=== PATIENT | male | born 1965 | race Caucasian/White ===

== ENCOUNTER 2020-04-07 07:32 | Day surgery (SDC) | payer BC ==
[~2020-04-07 07:32] MED LIST: Lactated Ringers 1,000 ML IV SCH
[2020-04-07] MEDS ORDERED: Lidocaine 2% 5 ML SDV ONE (08:17)
[2020-04-07] MEDS ORDERED: Propofol 200 MG/20 ML SDV ONE (08:18)
[2020-04-07] MEDS ORDERED: fentaNYL 100 MCG/2 ML SDV ONE (08:18)
--- NOTE | 2020-04-07 08:21 | PCM.PREANE ---
Preanesthetic Assessment - Anesthesia/Transfusion/Family Hx Anesthesia History: Prior Anesthesia Without Reaction Family History of Anesthesia Reaction: No Transfusion History: No Prior Transfusion(s) - Review of Systems General: No Symptoms Pulmonary: No Symptoms Cardiovascular: No Symptoms Gastrointestinal: No Symptoms Neurological: No Symptoms Other: Reports: None - Physical Assessment NPO Status Date: 04/06/20 Height: 6 ft 4 in Weight: 125.645 kg ASA Class: 2 Mental Status: Alert & Oriented x3 Airway Class: Mallampati = 2 Dentition: Reports: Normal Dentition ROM/Head Extension: Full Lungs: Clear to Auscultation, Normal Respiratory Effort Cardiovascular: Regular Rate, Regular Rhythm - Lab Values: Laboratory Last Values POC Glucose 189 mg/dL (60-110) H 04/07/20 07:42 - Allergies Allergies/Adverse Reactions: Allergies Allergy/AdvReac Type Severity Reaction Status Date / Time rofecoxib [From Vioxx] Allergy Shortness Verified 04/07/20 08:04 of Breath - Blood Blood Available: No - Anesthesia Plan Pre-Op Medication Ordered: None - Acknowledgements Anesthesia Type Planned: General Anesthesia (tiva) Pt an Appropriate Candidate for the Planned Anesthesia: Yes Alternatives and Risks of Anesthesia Discussed w Pt/Guardian: Yes Pt/Guardian Understands and Agrees with Anesthesia Plan: Yes Additional Comments: PMH: DM@- am [id number], htn, hld PLAN: tiva PreAnesthesia Questionnaire HEENT History: Reports: Other (See Below) Other HEENT History: wears glasses Cardiovascular History: Reports: High Cholesterol, Hypertension Respiratory History: Reports: None Gastrointestinal History: Reports: None Genitourinary History: Reports: Renal Calculus Musculoskeletal History: Reports: Arthritis, Back Pain, Chronic Neurological History: Reports: None Psychiatric History: Reports: None Endocrine/Metabolic History: Reports: Diabetes, Type II, Obesity/BMI 30+ Hematologic History: Reports: None Immunologic History: Reports: None Oncologic (Cancer) History: Reports: None Dermatologic History: Reports: None - Past Surgical History Head Surgeries/Procedures: Reports: None HEENT Surgical History: Reports: None Cardiovascular Surgical History: Reports: None Respiratory Surgical History: Reports: None GI Surgical History: Reports: None Male Surgical History: Reports: None Endocrine Surgical History: Reports: None Neurological Surgical History: Reports: None Musculoskeletal Surgical History: Reports: Arthroscopic Knee Other Musculoskeletal Surgeries/Procedures:: knee arthroscopy x2 Oncologic Surgical History: Reports: None Dermatological Surgical History: Reports: None - SUBSTANCE USE Smoking Status *Q: Never Smoker Recreational Drug Use History: No - HOME MEDS Home Medications: Home Meds Dulaglutide [Trulicity] 1 injection SUBCUT WEEKLY 04/01/20 [History] Empagliflozin/Linagliptin [Glyxambi 25 mg-5 mg Tablet] 1 tab PO DAILY 04/01/20 [History] Rosuvastatin Calcium 40 mg PO DAILY 04/01/20 [History] amLODIPine [Norvasc] 2.5 mg PO DAILY 04/01/20 [History] metFORMIN HCl [Metformin HCl] 1,000 mg PO BID 04/01/20 [History] - CURRENT (IN HOUSE) MEDS Current Meds: Current Medications Lactated Ringer's (Ringers, Lactated) 1,000 mls @ 125 mls/hr IV ASDIRECTED AMI
--- NOTE | 2020-04-07 10:04 | PCM.OPNOTE ---
- General Post-Op/Procedure Note Date of Surgery/Procedure: 04/07/20 Operative Procedure(s): Colonoscopy Pre Op Diagnosis: Desire for colorectal cancer screening Post-Op Diagnosis: No evidence of neoplasia Anesthesia Technique: MAC (ASA II) Primary Surgeon: Terell Burt Condition: Good Free Text/Narrative:: DICTATION [id number] CPT CODE 40479
[2020-04-07] MEDS ORDERED: Lactated Ringers 1,000 ML IV SCH (10:15)
--- NOTE | 2020-04-07 10:42 | PCM.POSTAN ---
POST ANESTHESIA ASSESSMENT - MENTAL STATUS Mental Status: Alert, Oriented - VITAL SIGNS Vital Signs: Last Vital Signs Temp 97.3 F 04/07/20 10:10 Pulse 83 04/07/20 10:10 Resp 14 04/07/20 10:10 BP 146/88 H 04/07/20 10:10 Pulse Ox 93 L 04/07/20 10:10 - RESPIRATORY Respiratory Status: Respiratory Rate WNL, Airway Patent, O2 Saturation Stable - CARDIOVASCULAR CV Status: Pulse Rate WNL, Blood Pressure Stable - GASTROINTESTINAL GI Status: No Symptoms - POST OP HYDRATION Hydration Status: Adequate & Stable
--- NOTE | 2020-04-07 10:42 | PCM48HPAN ---
Post Anesthesia Note - EVALUATION WITHIN 48HRS OF ANESTHETIC Vital Signs in Normal Range: Yes Patient Participated in Evaluation: Yes Respiratory Function Stable: Yes Airway Patent: Yes Cardiovascular Function Stable: Yes Hydration Status Stable: Yes Pain Control Satisfactory: Yes Nausea and Vomiting Control Satisfactory: Yes Mental Status Recovered: Yes Vital Signs: Last Vital Signs Temp 97.3 F 04/07/20 10:10 Pulse 83 04/07/20 10:10 Resp 14 04/07/20 10:10 BP 146/88 H 04/07/20 10:10 Pulse Ox 93 L 04/07/20 10:10
--- NOTE | 2020-04-07 12:56 | OR ---
SURGEON: Terell Burt M.D. DATE OF PROCEDURE: 04/07/2020 OPERATION PERFORMED: Colonoscopy. PRIMARY SURGEON: Terell Burt MD ANESTHESIA: MAC. ASA CLASSIFICATION: II. PREOPERATIVE DIAGNOSIS: Desire for colorectal cancer screening. POSTOPERATIVE DIAGNOSIS: No evidence of neoplasia. DESCRIPTION OF PROCEDURE: The patient was taken to the endoscopy room and positioned on the endoscopy table in the left lateral decubitus position. Time-out was called for appropriate identification of the patient and procedure. Monitored anesthesia care was provided. The colonoscope was inserted into the rectum and advanced with minimal difficulty to the cecum. The cecum was identified by internal landmarks and external pressure. The colonoscope was retroflexed to visualize the ascending colon from below, then straightened and slowly withdrawn. The prep was excellent. The cecum, ascending colon, hepatic flexure, transverse colon, splenic flexure, descending colon, sigmoid colon, and rectum were all very well visualized. There were no tumors, polyps, diverticula, or angiodysplastic changes. There was no evidence of inflammatory bowel disease. Once the colonoscope was withdrawn to the rectum, it was retroflexed to visualize the anal orifice from above. Again, no tumors or polyps were seen and there were no acute hemorrhoidal changes. The colonoscope was then straightened, the rectum aspirated, and the colonoscope removed. The patient tolerated the procedure well and was taken to recovery room in stable condition. TIBURCIO / ARTUR /[id number]
== END 2020-04-07 10:37 | disposition home or self-care (01) ==
LOC: MW.SDS 07:32
PROVIDERS: ATTEND Surgery
DX: Z12.11 Encounter for screening for malignant neoplasm of colon (principal); Z12.12 Encounter for screening for malignant neoplasm of rectum; E11.9 Type 2 diabetes mellitus without complications; I10 Essential (primary) hypertension; E66.9 Obesity, unspecified; E78.00 Pure hypercholesterolemia, unspecified; E78.5 Hyperlipidemia, unspecified; Z11.59 Encounter for screening for other viral diseases; Z98.890 Other specified postprocedural states; Z83.3 Family history of diabetes mellitus; Z88.8 Allergy status to other drugs, medicaments and biological substances; Z79.84 Long term (current) use of oral hypoglycemic drugs; Z79.899 Other long term (current) drug therapy; Z68.33 Body mass index [BMI] 33.0-33.9, adult
CPT/HCPCS: 45378; 82962; 87635; J2001; J2704; J3010; J7120; 00812; U0002